=== PATIENT | male | born 1950 | race Caucasian/White ===

== ENCOUNTER 2020-04-19 06:00 | Day surgery (SDC) | payer MEDICARE, OTHER ==
[2020-04-19] MEDS ORDERED: Dextrose 5%-Lactated Ringers 1,000 ML IV SCH (06:45)
[2020-04-19] MEDS ORDERED: Midazolam 1 MG/ML 2 ML SDV ONE (07:19)
[2020-04-19] MEDS ORDERED: fentaNYL 100 MCG/2 ML SDV ONE (07:19)
[2020-04-19] MEDS ORDERED: Propofol 200 MG/20 ML SDV ONE (07:19)
--- NOTE | 2020-04-24 15:09 | OR ---
DATE OF PROCEDURE: 04/19/2020 SURGEON: Angel Sol MD PREOPERATIVE DIAGNOSIS: Iron-deficiency anemia. POSTOPERATIVE DIAGNOSES: Iron-deficiency anemia associated with [id number] radiation proctitis. OPERATIVE PROCEDURE: Flexible colonoscopy. ANESTHESIA: IV sedation. INDICATION FOR PROCEDURE: A 69-year-old status post treatment of a stage IV prostate carcinoma. This included prostatectomy along with subsequent radiation treatment. He is presenting with some iron-deficiency anemia at this point, and the plan is to proceed with flexible colonoscopy for diagnostic purposes. Potential risks including bleeding and perforation were discussed, and the patient wishes to proceed. DETAILS OF PROCEDURE: The patient was taken to the operating room and placed in a left lateral decubitus position. IV sedation was administered, after which the digital rectal exam was performed and it was unremarkable. The anal sphincter in the lower most rectum was slightly thickened consistent with recent radiation treatment. The colonoscope was then passed into the rectum, and the patient was noted to have some obvious radiation proctitis with some scattered blood present on the surface after minimal manipulation of the scope across the area and above that area around 6 cm to 8 cm above the dentate line. The remainder of the colorectal examination was entirely normal with no areas of polyps, colitis, or diverticular disease. The scope was then withdrawn. The above findings were reconfirmed, and the procedure was then concluded. Should the patient develop significant bleeding over time, Proctofoam or some other topical agent for treatment of radiation proctitis might be useful. At this point, there appeared to be minimal bleeding and no bleeding until the scope had actually been manipulated to get across the mucosal surface, and so we will not initiate treatment at this time. He will be following up with Medical Oncology. Angel Sol MD /[id number]
== END 2020-04-19 10:00 | disposition home or self-care (01) ==
LOC: JP.SDS 06:00
PROVIDERS: ATTEND Surgery
DX: K62.7 Radiation proctitis (principal); D50.9 Iron deficiency anemia, unspecified; I10 Essential (primary) hypertension; Z85.46 Personal history of malignant neoplasm of prostate; Z90.79 Acquired absence of other genital organ(s); Y84.2 Radiological procedure and radiotherapy as the cause of abnormal reaction of the patient, or of later complication, without mention of misadventure at the time of the procedure
CPT/HCPCS: 45378; J2250; J2704; J3010; J7121

== ENCOUNTER 2021-06-06 14:38 | Inpatient (IN) | payer MEDICARE ==
[2021-06-06] MEDS ORDERED: Sodium Chloride 0.9% 10 ML Syringe FLUSH PRN (14:42)
--- NOTE | 2021-06-06 15:44 | EDM.PDOC ---
ED HPI GENERAL MEDICAL PROBLEM - General Chief Complaint: General Stated Complaint: LIGHT HEADED FROM [place] AT CLINIC Time Seen by Provider: 06/06/21 15:25 Source of Information: Reports: Patient, Old Records, Provider History Limitations: Reports: No Limitations - History of Present Illness INITIAL COMMENTS - FREE TEXT/NARRATIVE: 70 yo male with prostate CA and ASA therapy presents with dark stools, BRIGHT, mild tachypnea with exertion and Hgb of 6.9 today in the [facility]. He takes a baby ASA twice daily. The AM dose is with food and the PM dose is not. He stopped his iron about a week ago and the stools remained dark. Has no abdominal pain. Gets light-headed if he gets up too fast. Is not on anything for gastric protection. Onset: Gradual Duration: Day(s):, Getting Worse Location: Reports: Generalized Quality: Reports: Other (no pain) Severity: Moderate Improves with: Reports: Rest Worsens with: Reports: Other (exertion) Context: Reports: Other (See HPI) Associated Symptoms: Reports: No Other Symptoms Treatments [employer]: Reports: Other (see below) (none) - Related Data Allergies Allergy/AdvReac Type Severity Reaction Status Date / Time No Known Allergies Allergy Verified 06/06/21 15:05 Home Meds: Home Meds Aspirin [Halfprin] 81 mg PO DAILY 04/17/20 [History] Calcium Carbonate [Calcium] 600 mg PO DAILY 04/17/20 [History] Flecainide [Tambocor] 50 mg PO Q12H 04/17/20 [History] Metoprolol Succinate [Toprol Xl] 25 mg PO DAILY 04/17/20 [History] Multivitamin [Multivitamins] 1 tab PO DAILY 04/19/20 [History] Past Medical History HEENT History: Reports: Cataract, Impaired Vision Cardiovascular History: Reports: Afib, Hypertension Respiratory History: Reports: None Genitourinary History: Reports: Urinary Incontinence, Other (See Below) Other Genitourinary History: uses "clip" for urinary incontinence Musculoskeletal History: Reports: Fracture, Other (See Below) Other Musculoskeletal History: fractured arm in grade school Hematologic History: Reports: Anemia Oncologic (Cancer) History: Reports: Prostate, Other (See Below) Other Oncologic History: radiation after prostate CA resulting in decreased bladder control - Infectious Disease History Infectious Disease History: Reports: Chicken Pox, Measles, Mumps, Other (See Below) Other Infectious Disease History: sepsis after nicked bowel after prostatectomy - Past Surgical History HEENT Surgical History: Reports: Eye Surgery, Oral Surgery, Other (See Below) Other HEENT Surgeries/Procedures: surgery for crossed eyes GI Surgical History: Reports: Colonoscopy, Hernia, Inguinal, Other (See Below) Other GI Surgeries/Procedures: fransico in bowel after prostatectomy Male Surgical History: Reports: Prostatectomy, Other (See Below) Other Male Surgeries/Procedures: hernia mesh adhered to bowel - fransico in bowel after that surgery Social & Family History - Tobacco Use Tobacco Use Status *Q: Never Tobacco User - Caffeine Use Caffeine Use: Reports: None Other Caffeine Use: decaf Caffeine Use Comment: non since Febuary - Recreational Drug Use Recreational Drug Use: No ED ROS GENERAL - Review of Systems Review Of Systems: See Below Constitutional: Reports: No Symptoms HEENT: Reports: No Symptoms Respiratory: Reports: No Symptoms Cardiovascular: Reports: Dyspnea on Exertion, Lightheadedness, Other (tachycardia with exertion) GI/Abdominal: Reports: Melena. Denies: Abdominal Pain, Nausea : Reports: No Symptoms Musculoskeletal: Reports: No Symptoms Skin: Reports: No Symptoms Neurological: Reports: No Symptoms ED EXAM, GENERAL - Physical Exam Exam: See Below Exam Limited By: No Limitations General Appearance: Alert, WD/WN, No Apparent Distress Eye Exam: Bilateral Eye: Other (conjunctival pallor) Ears: Normal External Exam, Normal Canal, Hearing Grossly Normal Ear Exam: Bilateral Ear: Auricle Normal, Canal Normal Nose: Normal Inspection, No Blood Throat/Mouth: Normal Inspection, Normal Lips, Normal Oropharynx, Normal Voice, No Airway Compromise Head: Atraumatic, Normocephalic Neck: Normal Inspection Respiratory/Chest: No Respiratory Distress, Lungs Clear, Normal Breath Sounds, No Accessory Muscle Use Cardiovascular: Regular Rate, Rhythm, No Edema GI/Abdominal: Normal Bowel Sounds, Soft, Non-Tender, No Distention, Other (stools dark chocolate colored on exam) Rectal (Males) Exam: Normal Rectal Tone. No: Tenderness Extremities: Normal Inspection, Normal Range of Motion, Non-Tender, No Pedal Edema, Normal Capillary Refill Neurological: Alert, Oriented, CN II-XII Intact, Normal Cognition, No Motor/Sensory Deficits Psychiatric: Normal Affect, Normal Mood Skin Exam: Warm, Dry, Intact, Normal Color, No Rash Course - Vital Signs Text/Narrative:: Dr. Muñiz consulted @ [facility] Last Recorded V/S: Last Vital Signs Temp 36.3 C 06/06/21 15:04 Pulse 70 06/06/21 16:28 Resp 16 06/06/21 15:04 BP 127/57 L 06/06/21 16:28 Pulse Ox 100 06/06/21 16:28 - Orders/Labs/Meds Orders: Active Orders 24 hr Category Date Time Status PATIENT RETYPE [BBK] Stat Lab 06/06/21 15:15 Results RED BLOOD CELLS LP [BBK] Stat Lab 06/06/21 15:15 Results TYPE AND SCREEN [BBK] Stat Lab 06/06/21 15:15 Results Sodium Chloride 0.9% [Saline Flush] Med 06/06/21 14:42 Active 10 ml FLUSH ASDIRECTED PRN Saline Lock Insert [OM.PC] Routine Oth 06/06/21 14:42 Ordered Transfuse Red Blood Cells [COMM] Urgent Oth 06/06/21 15:46 Ordered Medication Orders Sodium Chloride (Sodium Chloride 0.9% 10 Ml Syringe) 10 ml FLUSH ASDIRECTED PRN PRN Reason: Keep Vein Open Labs: Laboratory Tests 06/06/21 Range/Units 15:15 Blood Type O POSITIVE Gel Antibody Screen Negative Crossmatch See Detail Meds: Medications Generic Name Dose Route Start Last Admin Trade Name Freq PRN Reason Stop Dose Admin Sodium Chloride 10 ml 06/06/21 14:42 Sodium Chloride 0.9% 10 Ml Syringe FLUSH ASDIRECTED PRN Keep Vein Open Departure - Departure Time of Disposition: 16:55 Disposition: Admitted As Inpatient 68 Condition: Fair Clinical Impression: Occult blood positive stool Anemia Qualifiers: Anemia type: other cause Other causes of anemia: acute posthemorrhagic Qualified Code(s): D62 - Acute posthemorrhagic anemia - Discharge Information *PRESCRIPTION DRUG MONITORING PROGRAM REVIEWED*: Not Applicable *COPY OF PRESCRIPTION DRUG MONITORING REPORT IN PATIENT NII: Not Applicable Referrals: Cristhian Chan MD [Primary Care Provider] - Forms: ED Department Discharge Sepsis Event Note (ED) - Evaluation Sepsis Screening Result: No Definite Risk - Focused Exam Vital Signs: Vital Signs Temp Pulse Resp BP Pulse Ox 06/06/21 16:28 70 127/57 L 100 06/06/21 15:04 36.3 C 82 16 137/58 L 100 06/06/21 14:59 36.3 C 82 16 137/58 L 100 - My Orders Last 24 Hours: My Active Orders 06/06/21 14:42 Sodium Chloride 0.9% [Saline Flush] 10 ml FLUSH ASDIRECTED PRN Saline Lock Insert [OM.PC] Routine 06/06/21 15:15 PATIENT RETYPE [BBK] Stat RED BLOOD CELLS LP [BBK] Stat TYPE AND SCREEN [BBK] Stat 06/06/21 15:46 Transfuse Red Blood Cells [COMM] Urgent - Assessment/Plan Last 24 Hours: My Active Orders 06/06/21 14:42 Sodium Chloride 0.9% [Saline Flush] 10 ml FLUSH ASDIRECTED PRN Saline Lock Insert [OM.PC] Routine 06/06/21 15:15 PATIENT RETYPE [BBK] Stat RED BLOOD CELLS LP [BBK] Stat TYPE AND SCREEN [BBK] Stat 06/06/21 15:46 Transfuse Red Blood Cells [COMM] Urgent
[2021-06-06] MEDS ORDERED: Pantoprazole 40 MG Vial IVPUSH ONE (17:24)
--- NOTE | 2021-06-06 17:38 | PCM.HP.2 ---
H&P History of Present Illness - General Date of Service: 06/06/21 Admit Problem/Dx: Admission Diagnosis/Problem Admission Diagnosis/Problem Upper gastrointestinal hemorrhage Source of Information: Patient, Provider History Limitations: Reports: No Limitations - History of Present Illness Initial Comments - Free Text/Narative: CC: My stools have been dark HPI: Dominick was sent to the emergency room for further evaluation after routine lab work at the clinic revealed a hemoglobin of 6.9. He does report for about the last 5 days that he has had some lightheadedness with standing as well as exertional dyspnea and chest tightness with prolonged exertion. Symptoms resolve at rest. He has noted black stools which number 2 to 3/day. He thought this was related to his iron supplement but have continued even though he stopped it a week ago. He does not report any epigastric abdominal pain, nausea or heartburn. Weight has been stable. He had been feeling well up until 5 days ago. He has not had any fevers. He does take 162 mg of aspirin daily but does not use nonsteroidal drugs other than on very rare occasions. No use of caffeine or alcohol. No significant stress. No history of ulcer disease. Hemoglobin at the clinic was 6.9. Creatinine is normal and potassium is normal. He has Hemoccult positive. Upper gastrointestinal hemorrhage is suspected with significant drop in his hemoglobin from 13 3 months ago down to 6.9 though I suspect a more acute drop given his orthostatic symptoms and exertional dyspnea. - Related Data Allergies/Adverse Reactions: Allergies Allergy/AdvReac Type Severity Reaction Status Date / Time No Known Allergies Allergy Verified 06/06/21 15:05 Home Medications: Home Meds Aspirin [Halfprin] 81 mg PO DAILY 04/17/20 [History] Calcium Carbonate [Calcium] 600 mg PO DAILY 04/17/20 [History] Flecainide [Tambocor] 50 mg PO Q12H 04/17/20 [History] Metoprolol Succinate [Toprol Xl] 25 mg PO DAILY 04/17/20 [History] Multivitamin [Multivitamins] 1 tab PO DAILY 04/19/20 [History] Past Medical History HEENT History: Reports: Cataract, Impaired Vision Cardiovascular History: Reports: Afib, Hypertension Respiratory History: Reports: None Genitourinary History: Reports: Urinary Incontinence, Other (See Below) Other Genitourinary History: uses "clip" for urinary incontinence Musculoskeletal History: Reports: Fracture, Other (See Below) Other Musculoskeletal History: fractured arm in grade school Hematologic History: Reports: Anemia Oncologic (Cancer) History: Reports: Prostate, Other (See Below) Other Oncologic History: radiation after prostate CA resulting in decreased bladder control - Infectious Disease History Infectious Disease History: Reports: Chicken Pox, Measles, Mumps, Other (See Below) Other Infectious Disease History: sepsis after nicked bowel after prostatectomy - Past Surgical History HEENT Surgical History: Reports: Eye Surgery, Oral Surgery, Other (See Below) Other HEENT Surgeries/Procedures: surgery for crossed eyes GI Surgical History: Reports: Colonoscopy, Hernia, Inguinal, Other (See Below) Other GI Surgeries/Procedures: fransico in bowel after prostatectomy Male Surgical History: Reports: Prostatectomy, Other (See Below) Other Male Surgeries/Procedures: hernia mesh adhered to bowel - fransico in bowel after that surgery Social & Family History - Family History GI: Denies: GI bleed - Tobacco Use Tobacco Use Status *Q: Never Tobacco User - Caffeine Use Caffeine Use: Reports: None Other Caffeine Use: decaf Caffeine Use Comment: non since Febuary - Alcohol Use Alcohol Use History: No Alcohol Use in Last Twelve Months: No - Recreational Drug Use Recreational Drug Use: No H&P Review of Systems - Review of Systems: Review Of Systems: See Below Free Text/Narrative: A complete 12 point review of systems was obtained. Pertinent positives and negatives are noted in the history of present illness. All other systems were reviewed and were negative except as noted. Exam - Exam Exam: See Below - Vital Signs Vital Signs: Last Vital Signs Temp 36.3 C 06/06/21 15:04 Pulse 70 06/06/21 16:28 Resp 16 06/06/21 15:04 BP 127/57 L 06/06/21 16:28 Pulse Ox 100 06/06/21 16:28 Weight: 90.718 kg - Exam Quality Assessment: No: Supplemental Oxygen General: Alert, Oriented, Cooperative, Other (pale). No: Mild Distress HEENT: Conjunctiva Clear, Mucosa Moist & [place]. No: Scleral Icterus Neck: Supple. No: Lymphadenopathy Lungs: Clear to Auscultation, Normal Respiratory Effort Cardiovascular: Regular Rate, Regular Rhythm. No: Systolic Murmur GI/Abdominal Exam: Normal Bowel Sounds, Soft, Non-Tender, No Distention, No Mass Extremities: No Pedal Edema. No: Increased Warmth Peripheral Pulses: 2+: Dorsalis Pedis (L), Dorsalis Pedis (R) Skin: Warm, Dry Neuro Extensive - Mental Status: Alert, Oriented x3, Nl Response to Commands Neuro Extensive - Motor, Sensory, Reflexes: No: Dysarthria, Abnormal Motor, Tremor Psychiatric: Alert, Normal Affect - Patient Data Lab Results Last 24 hrs: Laboratory Results - last 24 hr Hgb 6.9 PLT 261 K+ 3.8 Creat 0.9 06/06/21 Range/Units 15:15 Blood Type O POSITIVE Gel Antibody Screen Negative Crossmatch See Detail Lance Results Last 24 hrs: Microbiology 06/06/21 14:41 Stool Occult Blood (LANCE) - Final Stool / Feces - Stool, Formed Sepsis Event Note - Evaluation Sepsis Screening Result: No Definite Risk - Focused Exam Vital Signs: Vital Signs Temp Pulse Resp BP Pulse Ox 06/06/21 16:28 70 127/57 L 100 06/06/21 15:04 36.3 C 82 16 137/58 L 100 06/06/21 14:59 36.3 C 82 16 137/58 L 100 - Problem List (1) Upper gastrointestinal hemorrhage SNOMED Code(s): 44812735 ICD Code: K92.2 - GASTROINTESTINAL HEMORRHAGE, UNSPECIFIED Status: Acute Current Visit: Yes (2) Anemia due to blood loss, acute SNOMED Code(s): 171946353 ICD Code: D62 - ACUTE POSTHEMORRHAGIC ANEMIA Status: Acute Current Visit: Yes (3) Paroxysmal A-fib SNOMED Code(s): 213679412 ICD Code: I48.0 - PAROXYSMAL ATRIAL FIBRILLATION Status: Chronic Current Visit: Yes (4) Prostate cancer SNOMED Code(s): 420617195 ICD Code: C61 - MALIGNANT NEOPLASM OF PROSTATE Status: Chronic Current Visit: Yes Problem List Initiated/Reviewed/Updated: Yes Orders Last 24hrs: Active Orders 24 hr Category Date Time Status Patient Status Manage Transfer [TRANSFER] Routine ADT 06/06/21 17:25 Ordered CORONAVIRUS COVID-19 KELSY [MOLEC] Routine Lab 06/06/21 17:23 Ordered PATIENT RETYPE [BBK] Stat Lab 06/06/21 15:15 Results RED BLOOD CELLS LP [BBK] Stat Lab 06/06/21 15:15 Results TYPE AND SCREEN [BBK] Stat Lab 06/06/21 15:15 Results Sodium Chloride 0.9% [Saline Flush] Med 06/06/21 14:42 Active 10 ml FLUSH ASDIRECTED PRN Saline Lock Insert [OM.PC] Routine Oth 06/06/21 14:42 Ordered Transfuse Red Blood Cells [COMM] Urgent Oth 06/06/21 15:46 Ordered Resuscitation Status Routine Resus Stat 06/06/21 17:26 Ordered Medication Orders Sodium Chloride (Sodium Chloride 0.9% 10 Ml Syringe) 10 ml FLUSH ASDIRECTED PRN PRN Reason: Keep Vein Open Assessment/Plan Comment:: ASSESSMENT AND PLAN - Acute upper gastrointestinal hemorrhage-complicated by anemia due to blood loss. Manifestations including orthostatic dizziness, exertional dyspnea and exertional chest pressure. Significant drop compared to most recent testing and symptoms have been present for about 5 days. No impressive risk factors for ulcer disease or gastritis. He is on 162 mg of aspirin daily and this could be contributing. Suspect ulcer versus gastritis versus other. -Transfuse 1 unit of packed red blood cells -Gentle fluids overnight -Twice daily proton pump inhibitor -Repeat hemoglobin in the morning, transfuse to goal of greater than 7 unless he continues to have exertional dyspnea and chest pressure then we would aim for 8 -EGD when available (no surgeon available for 48 hours but no urgent need tonight) Paroxysmal atrial fibrillation-CHADSVASC score was low so he has been on just aspirin daily. Aspirin could be contributing to the bleeding as above. -Hold aspirin -Continue flecainide and metoprolol Prostate cancer-stage IV. Receiving injections every 3 months. -Outpatient follow-up with oncology Maintenance issues - -DVT prophylaxis-mechanical with active hemorrhage -GI prophylaxis-PPI -Nutrition-soft diet -Nava catheter-not indicated CODE STATUS -full code Admission justification -this patient will be admitted for inpatient services and is medically appropriate meeting medical necessity for inpatient admission as outlined in my documentation. I reasonably expect the patient will require inpatient services that span a period time over 2 midnights. I reasonably expect this patient to be discharged or transferred within 96 hours [facility]. Disposition -I anticipate discharge home after the hospital stay Primary care physician -Dr. Dustin Muñiz M.D. - Mortality Measure Prognosis:: Good
[2021-06-06] MEDS ORDERED: Acetaminophen 500 MG Tab PO PRN (19:50)
[2021-06-06] MEDS ORDERED: Magnesium Hydroxide 400 MG/5 ML Susp 30 ML Cup PO PRN (19:50)
[2021-06-06] MEDS ORDERED: LORazepam 2 MG/ML SDV IVPUSH PRN (19:50)
[2021-06-06] MEDS ORDERED: Ondansetron 4 MG/2 ML SDV IV PRN (19:50)
[2021-06-06] MEDS ORDERED: diphenhydrAMINE 25 MG Cap PO PRN (19:50)
[2021-06-06] MEDS ORDERED: Ondansetron 4 MG Tab.DIS PO PRN (19:50)
[2021-06-06] MEDS ORDERED: Acetaminophen 325 MG Tab PO PRN (19:50)
[2021-06-06] MEDS: Melatonin 3 MG Tab PO SCH (21:33)
[2021-06-06] MEDS: Flecainide 50 MG Tab PO SCH (21:33)
[2021-06-06] MEDS: Sodium Chloride 0.9% 1,000 ML IV SCH (22:48)
[2021-06-07] MEDS: Pantoprazole 40 MG Tab.CR PO SCH ×2 (07:38→16:14)
[2021-06-07] MEDS ORDERED: Metoprolol Succinate 25 MG Tab.ER PO SCH (09:00)
[2021-06-07] MEDS: Flecainide 50 MG Tab PO SCH ×2 (09:04→21:05)
[2021-06-07] MEDS: Metoprolol Succinate 25 MG Tab.ER PO SCH (12:51)
[2021-06-07] MEDS: Sodium Chloride 0.9% 1,000 ML IV SCH (14:19)
--- NOTE | 2021-06-07 14:46 | PCM.PN ---
- General Info Date of Service: 06/07/21 Subjective Update: No acute events overnight. No significant melena. No epigastric abdominal pain, nausea or hematemesis. Tolerated transfusion well yesterday. Hemoglobin this morning was only 6.3 and he did receive a second unit of blood via transfusion. His lightheadedness and dyspnea have improved with transfusion. Blood pressure has been improving with transfusions and gentle IV fluids. He does endorse difficulty hearing out of his right ear. Functional Status: Reports: Tolerating Diet - Review of Systems General: Denies: Fever Gastrointestinal: Denies: Abdominal Pain - Patient Data Vitals - Most Recent: Last Vital Signs Temp 35.9 C L 06/07/21 12:50 Pulse 65 06/07/21 12:51 Resp 18 06/07/21 12:50 BP 114/64 06/07/21 12:51 Pulse Ox 97 06/07/21 02:51 Weight - Most Recent: 87.09 kg I&O - Last 24 Hours: Intake & Output 06/06/21 06/07/21 06/07/21 22:59 06:59 14:59 Intake Total 377 1060 869 Balance 377 1060 869 Lab Results Last 24 Hours: Laboratory Results - last 24 hr 06/06/21 06/06/21 06/07/21 Range/Units 15:15 17:51 06:07 WBC 4.6 (4.5-11.0) K/uL RBC 2.16 L (4.30-5.90) M/uL Hgb 6.3 L* (12.0-15.0) g/dL Hct 20.4 L (40.0-54.0) % MCV 94 (80-98) fL MCH 29 (27-31) pg MCHC 31 L (32-36) % Plt Count 220 (150-400) K/uL Sodium (140-148) mmol/L Potassium (3.6-5.2) mmol/L Chloride (100-108) mmol/L Carbon Dioxide (21-32) mmol/L Anion Gap (5.0-14.0) mmol/L BUN (7-18) mg/dL Creatinine (0.8-1.3) mg/dL Est Cr Clr Drug Dosing mL/min Estimated GFR (MDRD) (>60) Glucose (74-106) mg/dL Calcium (8.5-10.1) mg/dL SARS-CoV-2 RNA (KESLY) Negative (NEGATIVE) Blood Type O POSITIVE Gel Antibody Screen Negative Crossmatch See Detail 06/07/21 06/07/21 Range/Units 06:07 13:58 WBC (4.5-11.0) K/uL RBC (4.30-5.90) M/uL Hgb 7.8 L (12.0-15.0) g/dL Hct (40.0-54.0) % MCV (80-98) fL MCH (27-31) pg MCHC (32-36) % Plt Count (150-400) K/uL Sodium 142 (140-148) mmol/L Potassium 4.1 (3.6-5.2) mmol/L Chloride 109 H (100-108) mmol/L Carbon Dioxide 25 (21-32) mmol/L Anion Gap 12.1 (5.0-14.0) mmol/L BUN 24 H (7-18) mg/dL Creatinine 1.0 (0.8-1.3) mg/dL Est Cr Clr Drug Dosing 79.90 mL/min Estimated GFR (MDRD) > 60 (>60) Glucose 98 (74-106) mg/dL Calcium 7.6 L (8.5-10.1) mg/dL SARS-CoV-2 RNA (KELSY) (NEGATIVE) Blood Type Gel Antibody Screen Crossmatch Lance Results Last 24 Hours: Microbiology 06/06/21 14:41 Stool Occult Blood (LANCE) - Final Stool / Feces - Stool, Formed Med Orders - Current: Current Medications Acetaminophen (Acetaminophen 325 Mg Tab) 650 mg PO Q4H PRN PRN Reason: Pain (Mild 1-3)/fever Acetaminophen (Acetaminophen 500 Mg Tab) 500 mg PO BEDTIME PRN PRN Reason: Sleep Diphenhydramine HCl (Diphenhydramine 25 Mg Cap) 25 mg PO BEDTIME PRN PRN Reason: Sleep Flecainide Acetate (Flecainide 50 Mg Tab) 50 mg PO BID [facility] Last Admin: 06/07/21 09:04 Dose: 50 mg Documented by: Sodium Chloride (Normal Saline) 1,000 mls @ 75 mls/hr IV ASDIRECTED MARILYNN Last Admin: 06/07/21 14:19 Dose: 75 mls/hr Documented by: Lorazepam (Lorazepam 2 Mg/Ml Sdv) 0.5 mg IVPUSH Q4H PRN PRN Reason: Nausea/Vomiting Magnesium Hydroxide (Magnesium Hydroxide 400 Mg/5 Ml Susp 30 Ml Cup) 30 ml PO Q12H PRN PRN Reason: Constipation Melatonin (Melatonin 3 Mg Tab) 9 mg PO BEDTIME [facility] Last Admin: 06/06/21 21:33 Dose: 9 mg Documented by: Metoprolol Succinate (Metoprolol Succinate 25 Mg Tab.Er) 25 mg PO DAILY@1200 [facility] Last Admin: 06/07/21 12:51 Dose: 25 mg Documented by: Ondansetron HCl (Ondansetron 4 Mg/2 Ml Sdv) 4 mg IV Q6H PRN PRN Reason: Nausea/Vomiting Ondansetron HCl (Ondansetron 4 Mg Tab.Dis) 4 mg PO Q6H PRN PRN Reason: Nausea able to take PO Pantoprazole Sodium (Pantoprazole 40 Mg Tab.Cr) 40 mg PO BIDAC [facility] Last Admin: 06/07/21 07:38 Dose: 40 mg Documented by: Senna/Docusate Sodium (Docusate Sodium/Sennosides 50-8.6 Mg Tab) 1 tab PO BID PRN PRN Reason: Constipation Sodium Chloride (Sodium Chloride 0.9% 10 Ml Syringe) 10 ml FLUSH ASDIRECTED PRN PRN Reason: Keep Vein Open Last Admin: 06/06/21 17:37 Dose: 10 ml Documented by: Discontinued Medications Influenza Virus Vaccine (Flu Vacc [id number](65yr Up)/Pf 240 Mcg/0.7 Ml Syringe) 240 mcg IM .ONCE ONE Stop: 06/07/21 09:01 Last Admin: 06/07/21 09:07 Dose: 240 mcg Documented by: Pantoprazole Sodium (Pantoprazole 40 Mg Vial) 40 mg IVPUSH ONETIME ONE Stop: 06/06/21 17:25 Last Admin: 06/06/21 17:37 Dose: 40 mg Documented by: - Exam Quality Assessment: No: Supplemental Oxygen General: Alert, Oriented, Cooperative, No Acute Distress HEENT: Other (Large amount of cerumen in the right ear canal with total obstruction) Lungs: Normal Respiratory Effort GI/Abdominal Exam: Soft, No Distention Extremities: No Pedal Edema Skin: Warm, Dry Psy/Mental Status: Alert, Normal Affect - Patient Data Lab Results Last 24 hrs: Laboratory Results - last 24 hr 06/06/21 06/06/21 06/07/21 Range/Units 15:15 17:51 06:07 WBC 4.6 (4.5-11.0) K/uL RBC 2.16 L (4.30-5.90) M/uL Hgb 6.3 L* (12.0-15.0) g/dL Hct 20.4 L (40.0-54.0) % MCV 94 (80-98) fL MCH 29 (27-31) pg MCHC 31 L (32-36) % Plt Count 220 (150-400) K/uL Sodium (140-148) mmol/L Potassium (3.6-5.2) mmol/L Chloride (100-108) mmol/L Carbon Dioxide (21-32) mmol/L Anion Gap (5.0-14.0) mmol/L BUN (7-18) mg/dL Creatinine (0.8-1.3) mg/dL Est Cr Clr Drug Dosing mL/min Estimated GFR (MDRD) (>60) Glucose (74-106) mg/dL Calcium (8.5-10.1) mg/dL SARS-CoV-2 RNA (KELSY) Negative (NEGATIVE) Blood Type O POSITIVE Gel Antibody Screen Negative Crossmatch See Detail 06/07/21 06/07/21 Range/Units 06:07 13:58 WBC (4.5-11.0) K/uL RBC (4.30-5.90) M/uL Hgb 7.8 L (12.0-15.0) g/dL Hct (40.0-54.0) % MCV (80-98) fL MCH (27-31) pg MCHC (32-36) % Plt Count (150-400) K/uL Sodium 142 (140-148) mmol/L Potassium 4.1 (3.6-5.2) mmol/L Chloride 109 H (100-108) mmol/L Carbon Dioxide 25 (21-32) mmol/L Anion Gap 12.1 (5.0-14.0) mmol/L BUN 24 H (7-18) mg/dL Creatinine 1.0 (0.8-1.3) mg/dL Est Cr Clr Drug Dosing 79.90 mL/min Estimated GFR (MDRD) > 60 (>60) Glucose 98 (74-106) mg/dL Calcium 7.6 L (8.5-10.1) mg/dL SARS-CoV-2 RNA (KELSY) (NEGATIVE) Blood Type Gel Antibody Screen Crossmatch Result Diagrams: 06/07/21 13:58 06/07/21 06:07 Lance Results Last 24 hrs: Microbiology 06/06/21 14:41 Stool Occult Blood (LANCE) - Final Stool / Feces - Stool, Formed Sepsis Event Note - Evaluation Sepsis Screening Result: No Definite Risk - Focused Exam Vital Signs: Vital Signs Temp Temp Pulse Pulse Resp BP BP 06/07/21 12:51 65 114/64 06/07/21 12:50 35.9 C L 65 18 114/64 06/07/21 08:59 35.6 C L 81 18 114/56 L 06/07/21 08:45 35.3 C L 79 18 118/60 06/07/21 08:15 35.6 C L 80 16 133/72 06/07/21 08:00 35.6 C L 81 18 106/88 06/07/21 07:45 36 C L 81 18 112/66 06/07/21 07:20 36.8 C 82 18 110/62 06/07/21 02:51 36.6 C 97 16 109/61 Pulse Ox 06/07/21 12:51 06/07/21 12:50 06/07/21 08:59 06/07/21 08:45 06/07/21 08:15 06/07/21 08:00 06/07/21 07:45 06/07/21 07:20 06/07/21 02:51 97 - Problem List & Annotations (1) Upper gastrointestinal hemorrhage SNOMED Code(s): 17143282 Code(s): K92.2 - GASTROINTESTINAL HEMORRHAGE, UNSPECIFIED Status: Acute Current Visit: Yes (2) Anemia due to blood loss, acute SNOMED Code(s): 094165010 Code(s): D62 - ACUTE POSTHEMORRHAGIC ANEMIA Status: Acute Current Visit: Yes (3) Paroxysmal A-fib SNOMED Code(s): 654943301 Code(s): I48.0 - PAROXYSMAL ATRIAL FIBRILLATION Status: Chronic Current Visit: Yes (4) Prostate cancer SNOMED Code(s): 572627586 Code(s): C61 - MALIGNANT NEOPLASM OF PROSTATE Status: Chronic Current Visit: Yes - Problem List Review Problem List Initiated/Reviewed/Updated: Yes - My Orders Last 24 Hours: My Active Orders 06/06/21 Dinner Regular Diet [DIET] 06/06/21 17:26 Resuscitation Status Routine 06/06/21 19:50 Acetaminophen [TylenoL] 650 mg PO Q4H PRN Acetaminophen [Tylenol Extra Strength] 500 mg PO BEDTIME PRN Docusate Sodium/Sennosides [Senna Plus] 1 tab PO BID PRN LORazepam [Ativan] 0.5 mg IVPUSH Q4H PRN Magnesium Hydroxide [Milk of Magnesia] 30 ml PO Q12H PRN Ondansetron [Zofran ODT] 4 mg PO Q6H PRN Ondansetron [Zofran] 4 mg IV Q6H PRN Sodium Chloride 0.9% [Normal Saline] 1,000 ml IV ASDIRECTED diphenhydrAMINE [Benadryl] 25 mg PO BEDTIME PRN 06/06/21 19:50 Patient Status [ADT] Routine Antiembolic Devices [RC] .Routine Intake and Output [RC] QSHIFT Notify Provider Vital Signs [RC] ASDIRECTED Oxygen Therapy [RC] PRN Up With Assistance [RC] ASDIRECTED Vital Signs [RC] Q4H Sequential Compression Device [OM.PC] Routine VTE Pharmacological Contraindications [AST] Routine 06/06/21 19:58 Vaccine to be Administered/Admin Charge [RC] 1000 06/06/21 21:00 Flecainide [Tambocor] 50 mg PO BID Melatonin 9 mg PO BEDTIME 06/07/21 06:39 Transfuse Red Blood Cells [COMM] Stat 06/07/21 07:30 Pantoprazole [ProTONIX] 40 mg PO BIDAC 06/07/21 12:00 Metoprolol Succinate [Toprol XL] 25 mg PO DAILY@1200 06/07/21 14:43 Ear Irrigation [RC] ASDIRECTED 06/07/21 14:45 Discontinue Telemetry Monitoring [Cardiac Monitoring Discontinue] [RC] Click to Edit Convert IV to Saline Lock [OM.PC] Routine 06/08/21 05:00 BASIC METABOLIC PANEL,BMP [CHEM] Timed CBC W/O DIFF,HEMOGRAM [HEME] Timed (1) - Plan Plan:: ASSESSMENT AND PLAN - Acute upper gastrointestinal hemorrhage-complicated by anemia due to blood loss. Symptomatically feeling better. Hemoglobin still less than 7 this morning so he did receive a second unit of blood. -Transfuse 1 unit of packed red blood cells this morning -Repeat hemoglobin this afternoon -Saline lock -Twice daily proton pump inhibitor -Repeat hemoglobin in the morning, transfuse to goal of greater than 7 unless he continues to have exertional dyspnea and chest pressure then we would aim for 8 -EGD when available (no surgeon available until tomorrow) -Continue to hold aspirin Right ear cerumen impaction-this was cleared by nursing staff this afternoon Paroxysmal atrial iauivjwixduq-RWBQF-FSMW score was low so he has been on just aspirin daily. Aspirin could be contributing to the bleeding as above. -Hold aspirin -Continue flecainide and metoprolol Prostate cancer-stage IV. Receiving injections every 3 months. -Outpatient follow-up with oncology Maintenance issues - -DVT prophylaxis-mechanical with active hemorrhage -GI prophylaxis-PPI -Nutrition-soft diet Disposition -I anticipate discharge home after the hospital stay Primary care physician -Dr. Dustin Muñiz M.D.
[2021-06-07] MEDS: Melatonin 3 MG Tab PO SCH (21:05)
[2021-06-08] MEDS: Pantoprazole 40 MG Tab.CR PO SCH ×2 (07:44→16:53)
[2021-06-08] MEDS: Flecainide 50 MG Tab PO SCH ×2 (08:59→20:24)
--- NOTE | 2021-06-08 10:59 | PCM.PN ---
- General Info Date of Service: 06/08/21 Subjective Update: No acute events overnight. Patient has not had significant melena. No nausea or hematemesis. Vital signs have been stable. No report of lightheadedness, chest pain or dyspnea. He has been walking in the halls. He received a blood transfusion yesterday which he tolerated well. Hemoglobin this morning was down to 7 so he received 1/3 unit of blood this morning. The plan is for EGD later in the day. Functional Status: Reports: Pain Controlled, Tolerating Diet - Review of Systems Gastrointestinal: Denies: Hematochezia, Melena, Nausea - Patient Data Vitals - Most Recent: Last Vital Signs Temp 35.6 C L 06/08/21 10:33 Pulse 55 L 06/08/21 10:33 Resp 18 06/08/21 10:33 BP 133/70 06/08/21 10:33 Pulse Ox 97 06/08/21 07:40 Weight - Most Recent: 87.09 kg I&O - Last 24 Hours: Intake & Output 06/07/21 06/08/21 06/08/21 22:59 06:59 14:59 Intake Total 600 500 317 Balance 600 500 317 Lab Results Last 24 Hours: Laboratory Results - last 24 hr 06/06/21 06/07/21 06/08/21 Range/Units 15:15 13:58 04:10 WBC 4.2 L (4.5-11.0) K/uL RBC 2.37 L (4.30-5.90) M/uL Hgb 7.8 L 7.0 L (12.0-15.0) g/dL Hct 21.9 L (40.0-54.0) % MCV 92 (80-98) fL MCH 30 (27-31) pg MCHC 32 (32-36) % Plt Count 221 (150-400) K/uL Sodium (140-148) mmol/L Potassium (3.6-5.2) mmol/L Chloride (100-108) mmol/L Carbon Dioxide (21-32) mmol/L Anion Gap (5.0-14.0) mmol/L BUN (7-18) mg/dL Creatinine (0.8-1.3) mg/dL Est Cr Clr Drug Dosing mL/min Estimated GFR (MDRD) (>60) Glucose (74-106) mg/dL Calcium (8.5-10.1) mg/dL Blood Type O POSITIVE Gel Antibody Screen Negative Crossmatch See Detail 06/08/21 Range/Units 04:10 WBC (4.5-11.0) K/uL RBC (4.30-5.90) M/uL Hgb (12.0-15.0) g/dL Hct (40.0-54.0) % MCV (80-98) fL MCH (27-31) pg MCHC (32-36) % Plt Count (150-400) K/uL Sodium 140 (140-148) mmol/L Potassium 4.1 (3.6-5.2) mmol/L Chloride 108 (100-108) mmol/L Carbon Dioxide 25 (21-32) mmol/L Anion Gap 7.2 (5.0-14.0) mmol/L BUN 24 H (7-18) mg/dL Creatinine 1.0 (0.8-1.3) mg/dL Est Cr Clr Drug Dosing 79.90 mL/min Estimated GFR (MDRD) > 60 (>60) Glucose 90 (74-106) mg/dL Calcium 7.7 L (8.5-10.1) mg/dL Blood Type Gel Antibody Screen Crossmatch Med Orders - Current: Current Medications Acetaminophen (Acetaminophen 325 Mg Tab) 650 mg PO Q4H PRN PRN Reason: Pain (Mild 1-3)/fever Acetaminophen (Acetaminophen 500 Mg Tab) 500 mg PO BEDTIME PRN PRN Reason: Sleep Diphenhydramine HCl (Diphenhydramine 25 Mg Cap) 25 mg PO BEDTIME PRN PRN Reason: Sleep Flecainide Acetate (Flecainide 50 Mg Tab) 50 mg PO BID [facility] Last Admin: 06/08/21 08:59 Dose: 50 mg Documented by: Lorazepam (Lorazepam 2 Mg/Ml Sdv) 0.5 mg IVPUSH Q4H PRN PRN Reason: Nausea/Vomiting Magnesium Hydroxide (Magnesium Hydroxide 400 Mg/5 Ml Susp 30 Ml Cup) 30 ml PO Q12H PRN PRN Reason: Constipation Melatonin (Melatonin 3 Mg Tab) 9 mg PO BEDTIME [facility] Last Admin: 06/07/21 21:05 Dose: 9 mg Documented by: Metoprolol Succinate (Metoprolol Succinate 25 Mg Tab.Er) 25 mg PO DAILY@1200 [facility] Last Admin: 06/07/21 12:51 Dose: 25 mg Documented by: Ondansetron HCl (Ondansetron 4 Mg/2 Ml Sdv) 4 mg IV Q6H PRN PRN Reason: Nausea/Vomiting Ondansetron HCl (Ondansetron 4 Mg Tab.Dis) 4 mg PO Q6H PRN PRN Reason: Nausea able to take PO Pantoprazole Sodium (Pantoprazole 40 Mg Tab.Cr) 40 mg PO BIDAC [facility] Last Admin: 06/08/21 07:44 Dose: 40 mg Documented by: Senna/Docusate Sodium (Docusate Sodium/Sennosides 50-8.6 Mg Tab) 1 tab PO BID PRN PRN Reason: Constipation Sodium Chloride (Sodium Chloride 0.9% 10 Ml Syringe) 10 ml FLUSH ASDIRECTED PRN PRN Reason: Keep Vein Open Last Admin: 06/06/21 17:37 Dose: 10 ml Documented by: Discontinued Medications Sodium Chloride (Normal Saline) 1,000 mls @ 75 mls/hr IV ASDIRECTED [facility] Last Admin: 06/07/21 14:19 Dose: 75 mls/hr Documented by: Influenza Virus Vaccine (Flu Vacc [id number](65yr Up)/Pf 240 Mcg/0.7 Ml Syringe) 240 mcg IM .ONCE ONE Stop: 06/07/21 09:01 Last Admin: 06/07/21 09:07 Dose: 240 mcg Documented by: Pantoprazole Sodium (Pantoprazole 40 Mg Vial) 40 mg IVPUSH ONETIME ONE Stop: 06/06/21 17:25 Last Admin: 06/06/21 17:37 Dose: 40 mg Documented by: - Exam Quality Assessment: No: Supplemental Oxygen General: Alert, Oriented, Cooperative, No Acute Distress Lungs: Normal Respiratory Effort GI/Abdominal Exam: Soft, No Distention Extremities: No Pedal Edema Psy/Mental Status: Alert, Normal Affect - Patient Data Lab Results Last 24 hrs: Laboratory Results - last 24 hr 06/06/21 06/07/21 06/08/21 Range/Units 15:15 13:58 04:10 WBC 4.2 L (4.5-11.0) K/uL RBC 2.37 L (4.30-5.90) M/uL Hgb 7.8 L 7.0 L (12.0-15.0) g/dL Hct 21.9 L (40.0-54.0) % MCV 92 (80-98) fL MCH 30 (27-31) pg MCHC 32 (32-36) % Plt Count 221 (150-400) K/uL Sodium (140-148) mmol/L Potassium (3.6-5.2) mmol/L Chloride (100-108) mmol/L Carbon Dioxide (21-32) mmol/L Anion Gap (5.0-14.0) mmol/L BUN (7-18) mg/dL Creatinine (0.8-1.3) mg/dL Est Cr Clr Drug Dosing mL/min Estimated GFR (MDRD) (>60) Glucose (74-106) mg/dL Calcium (8.5-10.1) mg/dL Blood Type O POSITIVE Gel Antibody Screen Negative Crossmatch See Detail 06/08/21 Range/Units 04:10 WBC (4.5-11.0) K/uL RBC (4.30-5.90) M/uL Hgb (12.0-15.0) g/dL Hct (40.0-54.0) % MCV (80-98) fL MCH (27-31) pg MCHC (32-36) % Plt Count (150-400) K/uL Sodium 140 (140-148) mmol/L Potassium 4.1 (3.6-5.2) mmol/L Chloride 108 (100-108) mmol/L Carbon Dioxide 25 (21-32) mmol/L Anion Gap 7.2 (5.0-14.0) mmol/L BUN 24 H (7-18) mg/dL Creatinine 1.0 (0.8-1.3) mg/dL Est Cr Clr Drug Dosing 79.90 mL/min Estimated GFR (MDRD) > 60 (>60) Glucose 90 (74-106) mg/dL Calcium 7.7 L (8.5-10.1) mg/dL Blood Type Gel Antibody Screen Crossmatch Result Diagrams: 06/08/21 14:00 06/08/21 04:10 Sepsis Event Note - Evaluation Sepsis Screening Result: No Definite Risk - Focused Exam Vital Signs: Vital Signs Temp Temp Pulse Resp BP Pulse Ox 06/08/21 10:33 35.6 C L 55 L 18 133/70 06/08/21 10:20 35.1 C L 61 18 141/68 H 06/08/21 09:40 35.4 C L 58 L 18 118/61 06/08/21 09:27 35.7 C L 60 18 122/60 06/08/21 09:10 35.5 C L 61 18 126/58 L 06/08/21 08:58 35.2 C L 63 18 128/57 L 06/08/21 07:40 36.5 C 68 18 138/72 97 06/08/21 04:37 36.8 C 64 16 128/64 97 06/08/21 00:37 36.2 C 67 16 124/60 99 - Problem List & Annotations (1) Upper gastrointestinal hemorrhage SNOMED Code(s): 70874118 Code(s): K92.2 - GASTROINTESTINAL HEMORRHAGE, UNSPECIFIED Status: Acute Current Visit: Yes (2) Anemia due to blood loss, acute SNOMED Code(s): 315322025 Code(s): D62 - ACUTE POSTHEMORRHAGIC ANEMIA Status: Acute Current Visit: Yes (3) Paroxysmal A-fib SNOMED Code(s): 998445446 Code(s): I48.0 - PAROXYSMAL ATRIAL FIBRILLATION Status: Chronic Current Visit: Yes (4) Prostate cancer SNOMED Code(s): 088410637 Code(s): C61 - MALIGNANT NEOPLASM OF PROSTATE Status: Chronic Current Visit: Yes - Problem List Review Problem List Initiated/Reviewed/Updated: Yes - My Orders Last 24 Hours: My Active Orders 06/07/21 12:00 Metoprolol Succinate [Toprol XL] 25 mg PO DAILY@1200 06/07/21 14:43 Ear Irrigation [RC] ASDIRECTED 06/07/21 14:45 Discontinue Telemetry Monitoring [Cardiac Monitoring Discontinue] [RC] Click to Edit Convert IV to Saline Lock [OM.PC] Routine 06/08/21 08:21 Transfuse Red Blood Cells [COMM] Routine 06/08/21 Lunch NPO Now [Nothing per Oral Now Diet] [DIET] 06/08/21 14:00 HGB [HEMOGLOBIN] [HEME] Routine 06/09/21 05:00 BASIC METABOLIC PANEL,BMP [CHEM] Timed CBC W/O DIFF,HEMOGRAM [HEME] Timed (1) - Plan Plan:: ASSESSMENT AND PLAN - Acute upper gastrointestinal hemorrhage-complicated by anemia due to blood loss. Symptomatically feeling better. Hemoglobin still low this morning at 7 and he did receive 1/3 unit of blood. Vitals have been stable. He has been n.p.o. since 8 AM. -Transfuse 1 unit of packed red blood cells this morning -Repeat hemoglobin this afternoon and in the morning -Saline lock -Twice daily proton pump inhibitor -EGD this afternoon -Continue to hold aspirin Right ear cerumen impaction-this was cleared by nursing staff 06/07. Paroxysmal atrial pzjrzhmorzrb-CZAWA-HTEX score was low so he has been on just aspirin daily. Aspirin could be contributing to the bleeding as above. -Hold aspirin -Continue flecainide and metoprolol Prostate cancer-stage IV. Receiving injections every 3 months. -Outpatient follow-up with oncology Maintenance issues - -DVT prophylaxis-mechanical with active hemorrhage -GI prophylaxis-PPI -Nutrition-n.p.o. until after the EGD Disposition -I anticipate discharge home after the hospital stay Primary care physician -Dr. Dustin Muñiz M.D.
[2021-06-08] MEDS: Metoprolol Succinate 25 MG Tab.ER PO SCH ×2 (12:03→20:23)
[2021-06-08] MEDS ORDERED: fentaNYL 100 MCG/2 ML SDV ONE (15:27)
[2021-06-08] MEDS ORDERED: Midazolam 1 MG/ML 2 ML SDV ONE (15:28)
[2021-06-08] MEDS ORDERED: Propofol 200 MG/20 ML SDV ONE (15:28)
[2021-06-08] MEDS ORDERED: Lactated Ringers 1,000 ML ONE (15:38)
[2021-06-08] MEDS ORDERED: Sodium Chloride 0.9% 80 ML IV SCH (16:45)
[2021-06-08] MEDS ORDERED: Sodium Chloride 0.9% 10 ML Syringe FLUSH ONE (16:45)
[2021-06-08] MEDS ORDERED: Iopamidol 612 MG/ML 150 ML Bottle IV SCH (16:45)
--- NOTE | 2021-06-08 18:15 | CRLCT ---
For Patients: As a result of the Century Cures Act, medical imaging exams and procedure reports are released immediately into your electronic medical record. You may view this report before your referring provider. If you have questions, please contact your health care provider. Indication: Upper GI hemorrhage EGD normal Technique: Contrast and CT abdomen and pelvis Comparison: No comparison Findings: Heart size normal. No pericardial effusion basilar atelectasis. Liver gallbladder spleen unremarkable adrenal glands unremarkable normal caliber abdominal aorta. Symmetric enhancement of both kidneys. Two small to characterize low attenuation lesion in the right inferior kidney complex right 3 x 2.2 centimeters cystic lesion with septations there may be slightly thickened septation present. No abdominal aortic aneurysm. Diverticulosis abundant stool in the colon. Small bowel anastomosis right abdomen. There is no bowel wall thickening or inflammatory change seen. Small amount of low-density fluid in the pelvis. Small fat containing inguinal hernias with fluid in the left inguinal hernia. Probable postsurgical changes of prior hernia repair. No suspicious bony lesions. Impression: 1. No acute findings in the abdomen or pelvis. No bowel wall thickening or inflammatory change seen. Small amount of low-density fluid in the pelvis. 2. Diverticulosis. 3. Mildly complex cystic lesion measuring 3 x 2.2 centimeters in the right kidney with several septations. There may be a slightly thickened septation present. Would recommend follow-up imaging either with MRI or CT renal protocol with and without contrast. Please note that all CT scans at this facility use dose modulation, iterative reconstruction, and/or weight-based dosing when appropriate to reduce radiation dose to as low as reasonably achievable. Dictated by Elle Lopez MD @ 06/08/2021 6:14:33 PM (Electronically Signed)
[2021-06-08] MEDS: Melatonin 3 MG Tab PO SCH (20:24)
[2021-06-09] MEDS: Pantoprazole 40 MG Tab.CR PO SCH (07:39)
--- NOTE | 2021-06-09 09:05 | OR ---
DATE OF PROCEDURE: 06/08/2021 SURGEON: Giles Foley MD PROCEDURE: Esophagogastroduodenoscopy. FINDINGS: 1. Mild inflammation at GE junction concerning for reflux disease versus Webber esophagus (biopsied using cold biopsy forceps). 2. No etiology for anemia. COMPLICATION: None. PRODUCTION LINE ASSEMBLER: None. ANESTHESIA: MAC. RISKS: Risks, benefits, alternatives, and limitations including, but not limited to infection, bleeding, perforation, false positives, and false negatives were explained to the patient and he wished to proceed. PROCEDURE IN DETAIL: The patient was placed in left lateral decubitus position. EGD scope was introduced and advanced atraumatically to the second part of the duodenum. No evidence of duodenitis or ulceration. Within the stomach itself, there was no evidence of gastritis or ulceration. The GE junction had an irregular Z-line that is concerning for Webber's esophagus versus gastroesophageal reflux disease. Four biopsies were taken at each quadrant. These were limited due to the concern of bleeding in this patient. The air was removed from the stomach and esophagus was inspected without abnormality. The patient tolerated the procedure well. Giles Foley MD /[id number]
[2021-06-09] MEDS: Flecainide 50 MG Tab PO SCH (09:30)
--- NOTE | 2021-06-09 10:18 | PCM.DCSUM1 ---
Discharge Summary - Hospital Course Brief History: 70-year-old male with history of prostate cancer who presented with lightheadedness and exertional dyspnea. He was sent from the clinic to the emergency room for evaluation of a hemoglobin of 6.9. He was admitted for management of a presumed upper gastrointestinal hemorrhage with anemia due to blood loss. Diagnosis: Stroke: No - Discharge Data Discharge Date: 06/09/21 Discharge Disposition: Home, Self-Care 01 Condition: Good - Referral to Home Health Primary Care Physician: Cristhian Chan MD - Discharge Diagnosis/Problem(s) (1) Upper gastrointestinal hemorrhage SNOMED Code(s): 09678435 ICD Code: K92.2 - GASTROINTESTINAL HEMORRHAGE, UNSPECIFIED Status: Acute (2) Anemia due to blood loss, acute SNOMED Code(s): 049008017 ICD Code: D62 - ACUTE POSTHEMORRHAGIC ANEMIA Status: Acute (3) Paroxysmal A-fib SNOMED Code(s): 259326972 ICD Code: I48.0 - PAROXYSMAL ATRIAL FIBRILLATION Status: Chronic (4) Prostate cancer SNOMED Code(s): 084572231 ICD Code: C61 - MALIGNANT NEOPLASM OF PROSTATE Status: Chronic (5) Renal cyst, right SNOMED Code(s): 966566716 ICD Code: N28.1 - CYST OF KIDNEY, ACQUIRED Status: Acute - Patient Summary/Data Hospital Course: Dominick presented to the clinic initially for routine labs but mentioned that he was feeling lightheaded and had shortness of breath with activity. His laboratory studies revealed a hemoglobin of 6.9 and had been 13 3 months ago. He was sent to the emergency room for further evaluation. In the emergency room he reported that he had been having black and tarry stools and his symptoms have progressed over the last for 5 days. Upper gastrointestinal bleed was suspected. He received a unit of blood via transfusion as well as a proton pump inhibitor and was admitted for further management. His vital signs were stable at the time of admission. Recheck hemoglobin the next morning was below 7 again so he received a second unit of blood. His vital signs remained stable. He remained on the proton pump inhibitor. Melena seem to have resolved at this point. Our hope had been that we could perform endoscopy but surgical services were not available. Symptoms had improved. By the next morning he had another h emoglobin of 7 so we gave him 1/3 unit of blood. He did not have any melena. He was not reporting any lightheadedness or exertional dyspnea and had been walking in the halls. We were able to perform upper endoscopy the day before discharge. This revealed a normal stomach and first part of the duodenum. There was some concern that he may have early Webber's esophagus and biopsies were obtained. Without an obvious cause for the bleeding we did perform a CT scan of the abdomen and pelvis with IV contrast. This did not show any abnormalities of the gastrointestinal tract. It did document a somewhat complex cyst involving the right kidney and a dedicated CT to look at this lesion was recommended. The patient feels well and has had several stable hemoglobin levels. His symptoms that brought him in have all resolved. His melena has resolved. No definite cause for the bleeding was identified but upper gastrointestinal source is suspected. He may have some AVMs in the small bowel. No obvious pathology was seen on the CT scan. His bleeding has stopped and he is stable so I think he is safe for discharge home. I did encourage him to decrease his aspirin from 162 mg down to 81 mg daily. He is on this for atrial fibrillation with a low risk for stroke. He will be following up with primary care at the end of the week. Biopsy results from the EGD should be available. He may need long-term acid suppression if he does have evidence for Webber's esophagus. He would also benefit from outpatient follow-up with a CT and dedicated renal protocol. We did not perform this during the hospital stay because he just had IV contrast yesterday and wanted to reduce the risk for contrast nephropathy. He is stable and safe for discharge and has appropriate follow-up. - Patient Instructions Diet: Regular Diet as Tolerated Activity: As Tolerated Driving: May Drive Today Showering/Bathing: May Shower Other/Special Instructions: 1. You were in the hospital for management of presumed upper gastrointestinal bleeding leading to anemia due to blood loss. The bleeding was significant enough that you required 3 units of blood via transfusion. We did not determine a definite location for the bleeding. Specifically, upper endoscopy did not show a source of bleeding from the stomach or first part of the small intestine and a CT scan of the abdomen and pelvis did not show a definite source. The most likely cause of the bleeding would be an arteriovenous malformation in the small intestine. The bleeding seems to have stopped at this time. I recommend that you hold your aspirin for 3 or 4 more days. When you do restart the aspirin please reduce your dose to 81 mg daily. If you have additional bleeding we may need to consider a colonoscopy and/or a small bowel capsule endoscopy to further explore potential bleeding sources. Y ou may increase your activity as tolerated. Please seek medical attention if you have similar symptoms (lightheadedness, dyspnea with exertion) to those that brought you to the hospital during this episode. I recommend that you resume your iron supplement after hospital discharge. 2. During the EGD (upper endoscopy) we noticed a slight change in the cells at the transition from the esophagus to the stomach. Dr. Foley obtained biopsies of this area of slight change. He will contact you with biopsy results when they are available. 3. While we were performing the work-up for gastrointestinal bleeding we discovered a cystic change in the right kidney. The radiologist recommended a dedicated CT to further evaluate this lesion. This can be done as an outpatient at your convenience. I would recommend talking to Dr. Chan about this at your follow-up visit. 4. Follow up as scheduled with Dr. Chan. - Discharge Plan *PRESCRIPTION DRUG MONITORING PROGRAM REVIEWED*: Not Applicable *COPY OF PRESCRIPTION DRUG MONITORING REPORT IN PATIENT NII: Not Applicable Home Medications: Home Meds Aspirin [Halfprin] 81 mg PO DAILY 04/17/20 [History] Calcium Carbonate [Calcium] 600 mg PO DAILY 04/17/20 [History] Flecainide [Tambocor] 50 mg PO Q12H 04/17/20 [History] Metoprolol Succinate [Toprol Xl] 25 mg PO DAILY 04/17/20 [History] Multivitamin [Multivitamins] 1 tab PO DAILY 04/19/20 [History] Oxygen Therapy Mode: Room Air Patient Handouts: Fall Prevention in the Home, Adult, [id number], Gastrointestinal Bleeding, [id number] Referrals: Cristhian Chan MD [Primary Care Provider] - 06/17/21 1:30 pm (Please arrive 15 minutes early to register for your appointment.) - Discharge Summary/Plan Comment DC Time >30 min.: Yes Total # of Minutes for Discharge Time: 40-coordinate follow up, counseling about GI bleeding, f/u of cystic lesion on right kidney - Patient Data Vitals - Most Recent: Last Vital Signs Temp 35.3 C L 06/09/21 07:39 Pulse 62 06/09/21 07:39 Resp 18 06/09/21 07:39 BP 118/67 06/09/21 07:39 Pulse Ox 97 06/09/21 07:39 Weight - Most Recent: 87.09 kg I&O - Last 24 hours: Intake & Output 06/08/21 06/09/21 06/09/21 22:59 06:59 14:59 Intake Total 640 Balance 640 Lab Results - Last 24 hrs: Laboratory Results - last 24 hr 06/06/21 06/08/21 06/09/21 Range/Units 15:15 14:00 05:43 WBC 6.0 (4.5-11.0) K/uL RBC 2.93 L (4.30-5.90) M/uL Hgb 8.7 L 8.3 L (12.0-15.0) g/dL Hct 26.3 L (40.0-54.0) % MCV 90 (80-98) fL MCH 28 (27-31) pg MCHC 32 (32-36) % Plt Count 234 (150-400) K/uL Sodium (140-148) mmol/L Potassium (3.6-5.2) mmol/L Chloride (100-108) mmol/L Carbon Dioxide (21-32) mmol/L Anion Gap (5.0-14.0) mmol/L BUN (7-18) mg/dL Creatinine (0.8-1.3) mg/dL Est Cr Clr Drug Dosing mL/min Estimated GFR (MDRD) (>60) Glucose (74-106) mg/dL Calcium (8.5-10.1) mg/dL Crossmatch See Detail 06/09/21 Range/Units 05:43 WBC (4.5-11.0) K/uL RBC (4.30-5.90) M/uL Hgb (12.0-15.0) g/dL Hct (40.0-54.0) % MCV (80-98) fL MCH (27-31) pg MCHC (32-36) % Plt Count (150-400) K/uL Sodium 141 (140-148) mmol/L Potassium 4.3 (3.6-5.2) mmol/L Chloride 107 (100-108) mmol/L Carbon Dioxide 26 (21-32) mmol/L Anion Gap 8.0 (5.0-14.0) mmol/L BUN 20 H (7-18) mg/dL Creatinine 0.9 (0.8-1.3) mg/dL Est Cr Clr Drug Dosing 88.78 mL/min Estimated GFR (MDRD) > 60 (>60) Glucose 88 (74-106) mg/dL Calcium 8.0 L (8.5-10.1) mg/dL Crossmatch Med Orders - Current: Current Medications Acetaminophen (Acetaminophen 325 Mg Tab) 650 mg PO Q4H PRN PRN Reason: Pain (Mild 1-3)/fever Acetaminophen (Acetaminophen 500 Mg Tab) 500 mg PO BEDTIME PRN PRN Reason: Sleep Diphenhydramine HCl (Diphenhydramine 25 Mg Cap) 25 mg PO BEDTIME PRN PRN Reason: Sleep Flecainide Acetate (Flecainide 50 Mg Tab) 50 mg PO BID [facility] Last Admin: 06/09/21 09:30 Dose: 50 mg Documented by: Sodium Chloride (Normal Saline) 80 mls @ 3.5 mls/sec IV ASDIRECTED [facility] Last Admin: 06/08/21 17:17 Dose: 3 mls/sec Documented by: Lorazepam (Lorazepam 2 Mg/Ml Sdv) 0.5 mg IVPUSH Q4H PRN PRN Reason: Nausea/Vomiting Magnesium Hydroxide (Magnesium Hydroxide 400 Mg/5 Ml Susp 30 Ml Cup) 30 ml PO Q12H PRN PRN Reason: Constipation Melatonin (Melatonin 3 Mg Tab) 9 mg PO BEDTIME [facility] Last Admin: 06/08/21 20:24 Dose: 9 mg Documented by: Metoprolol Succinate (Metoprolol Succinate 25 Mg Tab.Er) 25 mg PO DAILY@1200 [facility] Last Admin: 06/08/21 20:23 Dose: 25 mg Documented by: Ondansetron HCl (Ondansetron 4 Mg/2 Ml Sdv) 4 mg IV Q6H PRN PRN Reason: Nausea/Vomiting Ondansetron HCl (Ondansetron 4 Mg Tab.Dis) 4 mg PO Q6H PRN PRN Reason: Nausea able to take PO Pantoprazole Sodium (Pantoprazole 40 Mg Tab.Cr) 40 mg PO BIDAC [facility] Last Admin: 06/09/21 07:39 Dose: 40 mg Documented by: Senna/Docusate Sodium (Docusate Sodium/Sennosides 50-8.6 Mg Tab) 1 tab PO BID PRN PRN Reason: Constipation Sodium Chloride (Sodium Chloride 0.9% 10 Ml Syringe) 10 ml FLUSH ASDIRECTED PRN PRN Reason: Keep Vein Open Last Admin: 06/06/21 17:37 Dose: 10 ml Documented by: Discontinued Medications Fentanyl (Fentanyl 100 Mcg/2 Ml Sdv) Confirm Administered Dose 100 mcg .ROUTE .STK-MED ONE Stop: 06/08/21 15:28 Sodium Chloride (Normal Saline) 1,000 mls @ 75 mls/hr IV ASDIRECTED [facility] Last Admin: 06/07/21 14:19 Dose: 75 mls/hr Documented by: Lactated Ringer's (Ringers, Lactated) Confirm Administered Dose 1,000 mls @ as directed .ROUTE .K-MED ONE Stop: 06/08/21 15:39 Influenza Virus Vaccine (Flu Vacc [id number](65yr Up)/Pf 240 Mcg/0.7 Ml Syringe) 240 mcg IM .ONCE ONE Stop: 06/07/21 09:01 Last Admin: 06/07/21 09:07 Dose: 240 mcg Documented by: Iopamidol (Iopamidol 612 Mg/Ml 150 Ml Bottle) 130 ml IV . DIRECTED [facility] Last Admin: 06/08/21 17:16 Dose: 130 ml Documented by: Midazolam HCl (Midazolam 1 Mg/Ml 2 Ml Sdv) Confirm Administered Dose 2 mg .ROUTE .STK-MED ONE Stop: 06/08/21 15:29 Pantoprazole Sodium (Pantoprazole 40 Mg Vial) 40 mg IVPUSH ONETIME ONE Stop: 06/06/21 17:25 Last Admin: 06/06/21 17:37 Dose: 40 mg Documented by: Propofol (Propofol 200 Mg/20 Ml Sdv) Confirm Administered Dose 200 mg .ROUTE .STK-MED ONE Stop: 06/08/21 15:29 Sodium Chloride (Sodium Chloride 0.9% 10 Ml Syringe) 10 ml FLUSH ONETIME ONE Stop: 06/08/21 16:46 Last Admin: 06/08/21 17:17 Dose: 10 ml Documented by: *Q Meaningful Use (DIS) - VTE *Q VTE Pharmacological Contraindications *Q: Active Hemorrhage
== END 2021-06-09 10:40 | disposition home or self-care (01) | DRG 378 ==
LOC: JP.ED 14:38 → JP.MS 17:25
PROVIDERS: ADMIT Internal Medicine; ATTEND Internal Medicine
PROC: 30233N1 Transfusion of Nonautologous Red Blood Cells into Peripheral Vein, Percutaneous Approach (ICD-10-PCS; principal; 2021-06-06)
PROC: 3E02340 Introduction of Influenza Vaccine into Muscle, Percutaneous Approach (ICD-10-PCS; 2021-06-07)
PROC: 0DB48ZX Excision of Esophagogastric Junction, Via Natural or Artificial Opening Endoscopic, Diagnostic (ICD-10-PCS; 2021-06-08)
DX: K31.811 Angiodysplasia of stomach and duodenum with bleeding (principal); R19.5 Other fecal abnormalities; D62 Acute posthemorrhagic anemia; I48.91 Unspecified atrial fibrillation; I48.0 Paroxysmal atrial fibrillation; Z85.46 Personal history of malignant neoplasm of prostate; Z92.3 Personal history of irradiation; C61 Malignant neoplasm of prostate; Z79.899 Other long term (current) drug therapy; H54.7 Unspecified visual loss; I10 Essential (primary) hypertension; Z20.822 Contact with and (suspected) exposure to COVID-19; H61.21 Impacted cerumen, right ear; Z79.82 Long term (current) use of aspirin; Z90.79 Acquired absence of other genital organ(s); Z23 Encounter for immunization
CPT/HCPCS: 36415; 36430; 74177; 80048; 82272; 85018; 85027; 86850; 86900; 86901; 86920; 86922; 90662; 99285; A9270-GY; C9113; G0008; J2250; J2704; J3010; J7030; J7120; P9016; Q9967; U0002

== ENCOUNTER 2021-06-10 16:43 | Emergency (ER) | payer MEDICARE ==
[2021-06-10] MEDS ORDERED: Flecainide 50 MG Tab PO ONE (17:30)
[2021-06-10] MEDS ORDERED: Metoprolol Succinate 50 MG Tab.ER PO ONE (17:30)
--- NOTE | 2021-06-10 17:35 | EDM.PDOC ---
ED HPI GENERAL MEDICAL PROBLEM - General Chief Complaint: Cardiovascular Problem Stated Complaint: WEAK, LIGHTHEADED, DIZZY Time Seen by Provider: 06/10/21 17:15 Source of Information: Reports: Patient History Limitations: Reports: No Limitations - History of Present Illness INITIAL COMMENTS - FREE TEXT/NARRATIVE: 70-year-old male was just discharged from the hospital yesterday after a blood transfusion for treatment of anemia due to GI bleed. Source was not found. He had a normal bowel movement this morning, however today has been lightheaded all day and feels short of breath with activity very similar to how he felt when he was anemic. No chest pain, no significant palpitations, no nausea or vomiting. He had a firm bowel movement last evening with some blood but this morning it was normal. Denies abdominal pain. Onset: Unknown/Unsure Associated Symptoms: Reports: Malaise, Shortness of Breath, Weakness (Especially with activity). Denies: Chest Pain, Fever/Chills, Headaches - Related Data Allergies Allergy/AdvReac Type Severity Reaction Status Date / Time No Known Allergies Allergy Verified 06/10/21 17:08 Home Meds: Home Meds Aspirin [Halfprin] 81 mg PO DAILY 04/17/20 [History] Calcium Carbonate [Calcium] 600 mg PO DAILY 04/17/20 [History] Flecainide [Tambocor] 50 mg PO Q12H 04/17/20 [History] Metoprolol Succinate [Toprol Xl] 25 mg PO DAILY 04/17/20 [History] Multivitamin [Multivitamins] 1 tab PO DAILY 04/19/20 [History] Past Medical History HEENT History: Reports: Cataract, Impaired Vision Cardiovascular History: Reports: Afib, Hypertension Respiratory History: Reports: None Genitourinary History: Reports: Urinary Incontinence, Other (See Below) Other Genitourinary History: uses "clip" for urinary incontinence Musculoskeletal History: Reports: Fracture, Other (See Below) Other Musculoskeletal History: fractured arm in grade school Hematologic History: Reports: Anemia Oncologic (Cancer) History: Reports: Prostate, Other (See Below) Other Oncologic History: radiation after prostate CA resulting in decreased bladder control - Infectious Disease History Infectious Disease History: Reports: Chicken Pox, Measles, Mumps, Other (See Below) Other Infectious Disease History: sepsis after nicked bowel after prostatectomy - Past Surgical History HEENT Surgical History: Reports: Eye Surgery, Oral Surgery, Other (See Below) Other HEENT Surgeries/Procedures: surgery for crossed eyes GI Surgical History: Reports: Colonoscopy, Hernia, Inguinal, Other (See Below) Other GI Surgeries/Procedures: fransico in bowel after prostatectomy Male Surgical History: Reports: Prostatectomy, Other (See Below) Other Male Surgeries/Procedures: hernia mesh adhered to bowel - fransico in bowel after that surgery Social & Family History - Family History Family Medical History: No Pertinent Family History - Tobacco Use Tobacco Use Status *Q: Never Tobacco User - Caffeine Use Caffeine Use: Reports: None Other Caffeine Use: decaf Caffeine Use Comment: non since - Recreational Drug Use Recreational Drug Use: No ED ROS GENERAL - Review of Systems Review Of Systems: See Below Constitutional: Reports: Malaise. Denies: Fever, Chills HEENT: Reports: Other (Chronic disconjugate gaze) Respiratory: Reports: Shortness of Breath (With activity) Cardiovascular: Denies: Chest Pain, Palpitations GI/Abdominal: Reports: Hematochezia (Last evening, none today). Denies: Abdominal Pain, Nausea, Vomiting Musculoskeletal: Reports: No Symptoms Skin: Reports: Pallor Neurological: Reports: Dizziness, Weakness ED EXAM, GENERAL - Physical Exam Exam: See Below Exam Limited By: No Limitations General Appearance: Alert, No Apparent Distress, Anxious Eye Exam: Bilateral Eye: Other (Right eye is lazy, deviates outward, conjunctiva is moderately pale) Head: Atraumatic Respiratory/Chest: Lungs Clear Cardiovascular: Irregularly Irregular GI/Abdominal: Soft, Non-Tender Extremities: No: Pedal Edema, Joint Swelling, Increased Warmth Neurological: Alert, Oriented Psychiatric: Anxious Skin Exam: Pallor Course - Vital Signs Last Recorded V/S: Last Vital Signs Temp 97.5 F 06/10/21 17:07 Pulse 94 06/10/21 18:13 Resp 15 06/10/21 18:01 BP 119/77 06/10/21 18:13 Pulse Ox 97 06/10/21 18:01 - Orders/Labs/Meds Labs: Laboratory Tests 06/10/21 Range/Units 17:48 WBC 7.0 (4.5-11.0) K/uL RBC 3.78 L (4.30-5.90) M/uL Hgb 10.9 L D (12.0-15.0) g/dL Hct 33.5 L (40.0-54.0) % MCV 89 (80-98) fL MCH 29 (27-31) pg MCHC 33 (32-36) % Plt Count 283 (150-400) K/uL Neut % (Auto) 80.2 H (36-66) % Lymph % (Auto) 8.5 L (24-44) % [facility] % (Auto) 10.9 H (2-6) % Eos % (Auto) 0.3 L (2-4) % Baso % (Auto) 0.1 (0-1) % Meds: Medications Discontinued Medications Generic Name Dose Route Start Last Admin Trade Name Freq PRN Reason Stop Dose Admin Flecainide Acetate 50 mg 06/10/21 17:30 06/10/21 17:36 Flecainide 50 Mg Tab PO 06/10/21 17:31 50 mg ONETIME ONE Administration Metoprolol Succinate 50 mg 06/10/21 17:30 06/10/21 17:35 Metoprolol Succinate 50 Mg Tab.Er PO 06/10/21 17:31 50 mg ONETIME ONE Administration - Re-Assessments/Exams Free Text/Narrative Re-Assessment/Exam: 06/10/21 17:34 Due to the irregular cardiac exam, the patient was placed on cardiac monitoring and it revealed atrial fibrillation. At that point the patient admitted he has not taken his flecainide over his last 2 doses nor his metoprolol because of his recent hospitalization. A CBC will be drawn but I think his symptoms are more related to atrial fibrillation and blood loss anemia. He was given 50 mg of oral flecainide as well as 50 mg of extended release metoprolol. 06/10/21 18:22 Patient's hemoglobin returned over 10, and within 30 to 60 minutes of the flecainide and metoprolol doses he had much better rate control but still remained in atrial fibrillation. Encouraged the patient to take his regular medications tomorrow morning including his flecainide and metoprolol, and he can return to the emergency room at 9 or 10:00 with an empty stomach for recheck if he feels he is still in atrial fibrillation. He may need cardioversion. Departure - Departure Time of Disposition: 18:30 Disposition: Home, Self-Care 01 Clinical Impression: Atrial fibrillation with RVR Anemia Qualifiers: Anemia type: other cause Other causes of anemia: acute posthemorrhagic Qualified Code(s): D62 - Acute posthemorrhagic anemia Instructions: Atrial Fibrillation Referrals: Cristhian Chan MD [Primary Care Provider] - Forms: ED Department Discharge Care Plan Goals: Stay hydrated, activity as tolerated, and do not miss any of your regular medications for your atrial fibrillation including flecainide and metoprolol. Return tomorrow morning if still symptomatic. Sepsis Event Note (ED) - Evaluation Sepsis Screening Result: No Definite Risk
== END 2021-06-10 18:35 | disposition home or self-care (01) ==
LOC: JP.ED 16:43
DX: I48.91 Unspecified atrial fibrillation (principal); D62 Acute posthemorrhagic anemia; I10 Essential (primary) hypertension; Z79.82 Long term (current) use of aspirin; Z79.899 Other long term (current) drug therapy
CPT/HCPCS: 36415; 85025; 99284; A9270